=== PATIENT | male | born 1960 | race Caucasian/White ===

== ENCOUNTER 2017-05-24 11:23 | Emergency (ER) | payer OTHER, BC ==
[~2017-05-24] VITALS: Ht 177.8 cm; Wt 95.0 kg
[~2017-05-24 11:23] MED LIST: HYDROCHLOROTHIA25 MG PO; IBUPROFEN600 MG PO; LISINOPRIL20 MG PO; NEURONTIN100 MG PO; SIMVASTATIN40 MG PO; SIMVASTATIN80 M1 PO; TRAMADOL HCL50 MG PO; ZESTRIL,PRINIVI20 MG PO
[2017-05-24 11:33] VITALS: BP 124/69
[2017-05-24] MEDS ORDERED: NAPROXEN500 MG PO (13:12)
== END 2017-05-24 13:31 | disposition home or self-care (01) ==
LOC: EME 11:23
DX: S54.02XA Injury of ulnar nerve at forearm level, left arm, initial encounter (principal); I10 Essential (primary) hypertension
CPT/HCPCS: 99281; 99284